=== PATIENT | female | born 1945 | race Caucasian/White ===

== ENCOUNTER 2019-04-17 07:05 | Inpatient (IN) | payer OTHER ==
[~2019-04-17] VITALS: Ht 157.5 cm; Wt 72.6 kg
[2019-04-17] MEDS ORDERED: BUPIVACAINE-MPF/EPI 0.25% 30 ML VIAL INJ ONE (08:32)
[2019-04-17] MEDS ORDERED: SUCCINYLCHOLINE CHLORIDE 200 MG/10 ML VIAL IVP ONE (08:45)
[2019-04-17] MEDS ORDERED: ONDANSETRON 4 MG/2 ML VIAL ONE (08:45)
[2019-04-17] MEDS ORDERED: DEXAMETHASONE 4 MG/ML VIAL ONE (08:45)
[2019-04-17] MEDS ORDERED: ROCURONIUM 50 MG/5 ML VIAL IV ONE (08:45)
[2019-04-17] MEDS ORDERED: PROPOFOL 200 MG/20 ML VIAL IV ONE (08:45)
[2019-04-17] MEDS ORDERED: SEVOFLURANE 250 ML BTL INH ONE (08:45)
[2019-04-17] MEDS ORDERED: fentaNYL 0.05 MG/ML VIAL ONE (08:51)
[2019-04-17] MEDS ORDERED: MEPERIDINE 25 MG/ML SYR ONE (08:51)
[2019-04-17] MEDS ORDERED: NACL 0.9% 1,000 ML IV SCH (09:01)
[2019-04-17] MEDS ORDERED: diphenhydrAMINE 50 MG/ML VIAL IVP PRN (09:05)
[2019-04-17] MEDS ORDERED: ONDANSETRON 4 MG/2 ML VIAL IVP PRN (09:05)
[2019-04-17] MEDS ORDERED: MEPERIDINE 25 MG/ML SYR IVP PRN (09:05)
[2019-04-17] MEDS ORDERED: HYDROmorphone 1 MG/ML AMP IVP PRN ×2 (09:05→10:05)
[2019-04-17] MEDS: DEXT 5% /NACL 0.9% 1,000 ML IV SCH (10:01)
[2019-04-17] MEDS ORDERED: ACETAMINOPHEN 325 MG TAB PO PRN (10:05)
[2019-04-17] MEDS ORDERED: ONDANSETRON 4 MG/2 ML VIAL IV PRN (10:05)
[2019-04-17] MEDS ORDERED: MORPHINE SULFATE 2 MG/ML SYR IVP PRN (10:05)
[2019-04-17] MEDS ORDERED: MORPHINE SULFATE 4 MG/ML SYR IV PRN (10:05)
--- NOTE | 2019-04-17 11:00 | NUR ---
RECEIVED REPORT FROM OR NURSE FOR CONTINUITY OF CARE. RESPIRATIONS EVEN AND UNLABORED. IV INTACT AND PATENT. BED IN LOW POSITION. CALL LIGHT AT BEDSIDE. WILL CONTINUE TO MONITOR.
[2019-04-17 11:19] LABS: ANION GAP 14.7 (8-16); CARBON DIOXIDE 23.9 mmol/L (21-32); CHLORIDE 103 mmol/L (98-107); CREATININE 0.9 mg/dL (0.6-1.3); GLUCOSE 195 mg/dL (74-106); POTASSIUM 3.6 mmol/L (3.5-5.1); SODIUM SERUM 138 mmol/L (136-145); UREA NITROGEN, BLOOD 18 mg/dL (7-18)
--- NOTE | 2019-04-17 13:13 | NUR ---
PT SLEEPING AT THIS TIME. RESPIRATIONS EVEN AND UNLABORED. BED IN LOW POSITION. BED ALARM ON. WILL CONTINUE TO MONITOR.
[2019-04-17] MEDS: HYDROcodone/APAP 5/325 MG 1 TAB TAB PO PRN ×2 (14:10→19:10)
--- NOTE | 2019-04-17 14:45 | NUR ---
ASSISTED PT TO RESTROOM TO URINATE. PT TOLERATED WELL. RESPIRATIONS EVEN AND UNLABORED. BED IN LOW POSITION. BED ALARM ON. WILL CONTINUE TO MONITOR.
--- NOTE | 2019-04-17 15:10 | NUR ---
PT TALKING TO FAMILY AT BEDSIDE. RESPIRATIONS EVEN AND UNLABORED. BED IN LOW POSITION. BED ALARM ON. WILL CONTINUE TO MONITOR.
--- NOTE | 2019-04-17 17:35 | NUR ---
ASSISTED PT TO BATHROOM. PT TOLERATED WELL. RESPIRATIONS EVEN AND UNLABORED. BED IN LOW POSITION. BED ALARM ON. WILL CONTINUE TO MONITOR.
--- NOTE | 2019-04-17 19:24 | NUR ---
GAVE REPORT TO FRUIT RECEIVER NURSE FOR CONTINUITY OF CARE. PT IN STABLE CONDITION.
--- NOTE | 2019-04-17 19:24 | NUR ---
RECEIVED PT IN STABLE CONDITION FROM AM NURSE. AWAKE,ALERT AND ORIENTED X4. ON TELE MONITOR. FAMILY AT BEDSIDE. JUST MEDICATED FRO PAIN BY AM NURSE. IV ACCESS PULLED OUT. WILL START A NEW IV ACCESS . ABDOMEN WITH 2 LARGE BAND AIDS WITH SLIGHT BLEEDING ON BOTH . WILLIAMS DRAIN ON THE RT LOWER ABDOMEN WITH DARK RED OUTPUT IN MODERATE AMOUNT. PLAN OF CARE DISCUSSED AND VERBALIZED UNDERSTANDING. BED ON LOW POSITION .CALL LIGHT WITHIN EASY REACH. WILL CONTINUE TO MONITOR.
[2019-04-17 20:00] VITALS: BP 157/75
--- NOTE | 2019-04-17 20:02 | NUR ---
ON TELE MONITOR 83 SR.
--- NOTE | 2019-04-17 20:10 | NUR ---
PT IN BED. ASKED IF STILL IN PAIN, SHE SAID NO MORE PAIN AT THIS TIME. WILL CONTINUE TO MONITOR.
--- NOTE | 2019-04-17 21:00 | NUR ---
PT VOMITED . MEDICATE WITH ZOFRAN ORDERED.
--- NOTE | 2019-04-17 21:40 | NUR ---
PAGED DR. BAKER FOR PT C/O HEARTBURN AND ALSO TO CLARIFY DIET ORDER. CALLED BACK WITH ORDERS.
[2019-04-17] MEDS: ALUMINUM HYD/MAG/SIMETHICONE 30 ML UDC PO PRN (23:51)
--- NOTE | 2019-04-17 23:55 | NUR ---
ON TELE MONITOR- 84 SR.
[2019-04-18] VITALS: BP 158/79
[2019-04-18] MEDS: DEXT 5% /NACL 0.9% 1,000 ML IV SCH ×3 (00:19→15:24)
--- NOTE | 2019-04-18 01:06 | NUR ---
NO IV ACCESS. PULLED OUT EARLIER WHEN PT WENT TO THE BATHROOM. SATRED A NEW IV ACCESS ON THE RT FA G# 22, CLEAR AND PATENT. IVF INFUSING WELL .
[2019-04-18] MEDS: HYDROcodone/APAP 5/325 MG 1 TAB TAB PO PRN ×3 (01:36→16:04)
--- NOTE | 2019-04-18 01:36 | NUR ---
C/O POST OP ABDOMINAL PAIN 03/12 . MEDICATED ORDERED. WILL CONTINUE TO MONITOR.
[2019-04-18 03:45] VITALS: BP 174/78
--- NOTE | 2019-04-18 03:50 | NUR ---
PAGED DR. BAKER FOR PT'S BP ELEVATED 174/78. WILL WAIT FOR CALL BACK.
--- NOTE | 2019-04-18 04:00 | NUR ---
DR. BAKER DIDN'T CALL BACK. SO PAGED DR. BRYCE Caruso. CONSULT INSTEAD. WILL WAIT FOR CALL BACK.
--- NOTE | 2019-04-18 04:05 | NUR ---
DR. WU CALLED BACK. MADE AWARE ABOUT PT'S ELEVATED BP 174/78. WITH ORDERS.
[2019-04-18] MEDS ORDERED: cloNIDine 0.1 MG TAB PO SCH (04:30)
--- NOTE | 2019-04-18 04:37 | NUR ---
PT HAS BEEN SR ON THE TELE MONITOR
--- NOTE | 2019-04-18 05:48 | NUR ---
PT ABLE TO SLEEP . LATEST BP 161/75 HR 79. NO C/O ANY PAIN NOTED.
--- NOTE | 2019-04-18 06:35 | NUR ---
DR. BAKER CALLED .MADE AWARE ABOUT THE PT ELEVATED BP AND TH WILLIAMS DRAIN 80 ML . WITH ORDER TO ADD CMP TO THE LAB THIS AM.
--- NOTE | 2019-04-18 07:20 | NUR ---
ENDORSED PT IN STABLE CONDITION TO AM NURSE.
--- NOTE | 2019-04-18 07:21 | NUR ---
Received bedside report from pm nurse Leticia. Pt resting in bed, awake, verbally responsive. Verbalized that she "feels better". Right forearm IV intact & asymptomatic with ongoing D5NS @ 70ml/hr. Call light within reach.
[2019-04-18 07:34] LABS: ALBUMIN 3.3 g/dL (3.4-5.0); ANION GAP 13.2 (8-16); ASPARTATE AMINOTRANSFERASE 73 U/L (15-37); CARBON DIOXIDE 24.8 mmol/L (21-32); CHLORIDE 99 mmol/L (98-107); CREATININE 0.8 mg/dL (0.6-1.3); GLUCOSE 125 mg/dL (74-106); SODIUM SERUM 133 mmol/L (136-145); TOTAL BILIRUBIN 0.4 mg/dL (0.0-1.0); UREA NITROGEN, BLOOD 16 mg/dL (7-18)
[2019-04-18 08:00] VITALS: BP 138/65
[2019-04-18] MEDS: CARVEDILOL 6.25 MG TAB PO SCH ×2 (08:34→16:04)
--- NOTE | 2019-04-18 09:10 | NUR ---
PATIENT HAS BEEN SCREENED AND CATEGORIZED MODERATE NUTRITION RISK. PATIENT WILL BE SEEN WITHIN 3-5 DAYS OF ADMISSION. 04/20/19 04/22/[address]
[2019-04-18 09:34] LABS: BASOPHILS % (AUTO) 0.1 % (0.0-2.0); EOSINOPHILS % (AUTO) 0.1 % (0.0-4.0); HEMATOCRIT 34.2 % (36-48); HEMOGLOBIN 11.5 g/dL (12.0-16.0); MEAN CORPUSCULAR HEMOGLOBIN 29 pg (27-31); MEAN CORPUSCULAR HGB CONC 34 g/dL (33-37); MEAN CORPUSCULAR VOLUME 86.4 fL (80-94); MONOCYTES # (AUTO) 0.5 K/uL (0.8-1.0); MONOCYTES % (AUTO) 4.7 % (1.7-9.3); NEUTROPHILS % (AUTO) 76.1 % (42.2-75.2); PLATELET COUNT (AUTO) 177 K/uL (140-450); RED BLOOD CELL COUNT(AUTO) 3.96 MIL/uL (4.20-5.40); RED CELL DISTRIBUTION WIDTH 13.8 % (11.6-13.7); WHITE BLOOD COUNT (AUTO) 10.4 K/uL (4.8-10.8)
[2019-04-18] MEDS: ALUMINUM HYD/MAG/SIMETHICONE 30 ML UDC PO PRN (10:38)
--- NOTE | 2019-04-18 10:38 | NUR ---
Pt c/o feeling "heartburn". Maalox given. No signs of acute distress. Call light within reach.
--- NOTE | 2019-04-18 10:50 | NUR ---
Dr. Feliciano at bedside to assess pt. Per renae Chaves to discharge home if ok with Dr. Pascual. Dr. Pascual paged & awaiting call back.
[2019-04-18 12:00] VITALS: BP 139/63
--- NOTE | 2019-04-18 12:50 | NUR ---
Pt c/o feeling gassy & bloated. Per pt, no flatus since last night. Abd round, soft, bowel sounds hypoactive on all quads. Instructed pt to amb around unit frequently as gurmeet. Pt agree & states she will walk after lunch. No c/o pain at this time. Call light within reach.
[2019-04-18 16:00] VITALS: BP 144/69
--- NOTE | 2019-04-18 16:04 | NUR ---
[place] administered prior to WILLIAMS drain removal. Pt aaox4, c/o 5/10 pain to sx sites but states it is tolerable at this time. Call light within reach.
--- NOTE | 2019-04-18 16:50 | NUR ---
Right lower abd WILLIAMS drain with 70ml serosanguineous drainage. WILLIAMS removed, tubings intact, no bleeding, site covered with dry 4x4 gauze. No c/o discomfort. Right hand IV removed, cannula intact. Call light within reach.
[2019-04-18] MEDS ORDERED: HYDR-5122 PO (17:04)
--- NOTE | 2019-04-18 17:20 | NUR ---
Written & verbal discharge instructions given to pt. Pt verbalized understanding. Abd sx incisions x2 intact, no bleeding, WILLIAMS removal site no bleeding, dressings clean, dry, & intact. No signs of distress, no c/o pain. Pt discharged & amb off unit with steady gait, accompanied by daughter & grand daughter. All belongings with pt upon departure. Name band removed.
== END 2019-04-18 17:20 | disposition home or self-care (01) | DRG 419 ==
LOC: MMU 07:05 → MDS 07:05 → MTU 10:01
PROVIDERS: ADMIT Surgery; ATTEND Surgery
PROC: 0FB14ZX Excision of Right Lobe Liver, Percutaneous Endoscopic Approach, Diagnostic (ICD-10-PCS; 2019-04-17)
PROC: 0FT44ZZ Resection of Gallbladder, Percutaneous Endoscopic Approach (ICD-10-PCS; principal; 2019-04-17 08:50)
DX: K80.20 Calculus of gallbladder without cholecystitis without obstruction (principal); E11.9 Type 2 diabetes mellitus without complications; E66.9 Obesity, unspecified; Z68.29 Body mass index [BMI] 29.0-29.9, adult
CPT/HCPCS: 36415; 71045; 80048; 80053; 82374; 85025; 88304; 88305; 93005; C1887; J0330; J0690; J1100; J2175; J2405; J2704; J3010; J3490; J7030; J7042; J7060